=== PATIENT | female | born 1985 | race Caucasian/White ===

== ENCOUNTER 2018-08-13 11:44 | Observation (INO) | payer MEDICAID | END 2018-08-13 13:40 | disposition home or self-care (01) | LOC: FLD 11:44 | PROVIDERS: ADMIT Obstetrics & Gynecology; ATTEND Obstetrics & Gynecology | DX: Z03.79 Encounter for other suspected maternal and fetal conditions ruled out (principal) | CPT/HCPCS: 59025; G0378 ==

== ENCOUNTER 2018-10-21 06:00 | Inpatient (IN) | payer MEDICAID ==
[2018-10-21] MEDS ORDERED: LIDOCAINE 1% 300 MG/30 ML SDV SC PRN (07:12)
[2018-10-21] MEDS ORDERED: OLIVE OIL 118 ML BTL MISC PRN (07:12)
[2018-10-21] MEDS ORDERED: IBUPROFEN 600 MG TAB PO PRN (07:12)
[2018-10-21] MEDS ORDERED: LR 1,000 ML IV PRN (07:12)
[2018-10-21] MEDS ORDERED: OXYTOCIN/RINGERS LACTATE 1,000 ML IV PRN (07:12)
[2018-10-21] MEDS ORDERED: EPSOM SALT 454 GM TP PRN (07:12)
[2018-10-21] MEDS ORDERED: MISOPROSTOL 200 MCG TAB PR PRN (07:12)
[2018-10-21 07:31] LABS: PLATELET COUNT 265 10^3/uL (150-400)
[2018-10-21] MEDS ORDERED: AMMONIA AROMATIC 1 EACH AMP IH ONE (08:16)
[2018-10-21] MEDS ORDERED: MISOPROSTOL 200 MCG TAB ONE (08:16)
[2018-10-21] MEDS ORDERED: OXYTOCIN 10 UNIT/ML VIAL ONE (08:16)
[2018-10-21] MEDS ORDERED: LIDOCAINE 1% 300 MG/30 ML SDV ONE (08:16)
[2018-10-21] MEDS ORDERED: OLIVE OIL 118 ML BTL MISC ONE (08:16)
[2018-10-21] MEDS ORDERED: TERBUTALINE SULFATE 1 MG/ML VIAL ONE (08:16)
[2018-10-21] MEDS ORDERED: OXYTOCIN/RINGERS LACTATE 500 ML IV SCH (08:30)
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
[2018-10-21] MEDS ORDERED: BUPIVACAINE 0.25% 10 ML SDV ONE (11:06)
[2018-10-21] MEDS ORDERED: fentaNYL 100 MCG/2 ML INJ ONE (11:06)
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
[2018-10-21] MEDS ORDERED: ONDANSETRON 4 MG/2 ML VIAL IVP PRN (11:22)
[2018-10-21] MEDS ORDERED: PHENYLEPHRINE HCL 100 MCG/ML SYR IVP PRN (11:22)
--- NOTE | 2018-10-21 11:25 | PREANESOB ---
Obstetric Pre-Anesthesia Info - General Info Proposed Procedure: SOLA : 2 Para: 1 MARLIN: 10/14/18 Gestational Age: 41 week(s) and 0 day(s) - Info Status: Full Term FHR Pattern: Reassuring - Labor Status Cervical Dilation per last OB SVE: 5 Station per last OB SVE: -2 Indications for Labor Analgesia: Augmentation of Labor, Pain Control Labor Epidural: Yes Anesthesia Allergies/Adverse Reactions: Allergy/AdvReac Type Severity Reaction Status Date / Time No Known Allergies Allergy Unverified 08/13/18 12:07 Home Medications: Medication Instructions Recorded Bupropion HCl [Wellbutrin Xl] 300 mg PO DAILY 10/21/18 Visit Medications: Generic Name Dose Route Start Last Admin Trade Name Freq PRN Reason Stop Dose Admin Fentanyl/Bupivacaine HCl 0 ml 10/21/18 11:30 Fentanyl/Bupivacaine/Ns 2 Mcg/Ml 0.1% (Premix EP 10/31/18 11:29 AD DENNIS Lactated Ringer's 1,000 mls @ 0 mls/hr 10/21/18 07:12 Lr IV 10/22/18 07:11 PRN PRN SEE PROTOCOL CONDITIONS Protocol Per Protocol Oxytocin/Lactated Ringer's 1,000 mls @ 125 mls/hr 10/21/18 07:12 Pitocin 20 Units/Lr (Premix) IV PRN PRN Post bleeding Oxytocin/Lactated Ringer's 500 mls @ 0 mls/hr 10/21/18 08:30 Pitocin 30 Units/Lr (Premix) IV 04/19/19 08:29 CONT DENNIS Titrate Ibuprofen 600 mg 10/21/18 07:12 Motrin PO ONCE PRN post , pain Lidocaine HCl 300 mg 10/21/18 07:12 Lidocaine Hcl 1% SC 04/19/19 07:11 ONCE PRN episiotomy Magnesium Sulfate 454 gm 10/21/18 07:12 Epsom Salt TP 04/19/19 07:11 Q1H PRN perineal discomfort Misoprostol 800 - 1,000 mcg 10/21/18 07:12 Cytotec AR ONCE PRN Vaginal Atony/Bleeding [place] Oil 118 ml 10/21/18 07:12 Sweet Oil MISC 04/19/19 07:11 ONCE PRN perineal massage Discontinued Medications Generic Name Dose Route Start Last Admin Trade Name Freq PRN Reason Stop Dose Admin Ammonia (Aromatic Spirit) Confirm 10/21/18 08:16 Ammonia Aromatic Administered 10/21/18 08:17 Dose 1 each IH .STK-MED ONE Bupivacaine HCl Confirm 10/21/18 11:06 Sensorcaine 0.25% Sdv Administered 10/21/18 11:07 Dose 10 ml .ROUTE .STK-MED ONE Fentanyl Confirm 10/21/18 11:06 Sublimaze Administered 10/21/18 11:07 Dose 100 mcg .ROUTE .STK-MED ONE Lidocaine HCl Confirm 10/21/18 08:16 Lidocaine Hcl 1% Administered 10/21/18 08:17 Dose 300 mg .ROUTE .STK-MED ONE Misoprostol Confirm 10/21/18 08:16 Cytotec Administered 10/21/18 08:17 Dose 1,000 mcg .ROUTE .STK-MED ONE [place] Oil Confirm 10/21/18 08:16 Sweet Oil Administered 10/21/18 08:17 Dose 118 ml MISC .STK-MED ONE Oxytocin Confirm 10/21/18 08:16 Pitocin Administered 10/21/18 08:17 Dose 40 unit .ROUTE .STK-MED ONE Terbutaline Sulfate Confirm 10/21/18 08:16 Brethine Administered 10/21/18 08:17 Dose 1 mg .ROUTE .STK-MED ONE - Vital Signs Height/Weight (Nursing): Height 5 ft 6 in Weight 60.781 kg - Focused Exam Neck exam: FROM Mallampati Score: Class 2 Mouth exam: normal dental/mouth exam Pulmonary: no respiratory distress Cardiovascular: regular rate and rhythym Labs: 10/21/18 07:15 Patient ABO/Rh A POSITIVE 10/21/18 07:15 - Plan Consent Signed and on Chart: Yes Patient/Guardian Understands and Agrees to Plan: Yes Urgent/Emergent Case: Izzy stauffer completed preop but documented later for safe timely pt care
[2018-10-21] MEDS ORDERED: fentaNYL 2MCG/ML/BUP 0.1% RTU 100 ML BAG EP SCH (11:30)
[2018-10-21] MEDS ORDERED: LR 500 ML IV SCH (11:30)
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
[2018-10-21] MEDS ORDERED: SIMETHICONE 80 MG TAB CHEW PO PRN (14:27)
[2018-10-21] MEDS ORDERED: HYDROCORTISONE 0.5% CREAM TP PRN (14:27)
[2018-10-21] MEDS ORDERED: MEASLES,MUMPS&RUBELLA VACC/PF 0.5 ML VIAL SC ONE (14:28)
--- NOTE | 2018-10-21 14:33 | OBDEL ---
Info Type: Vaginal Presentation at Delivery: Vertex (VANE) L&D Analgesia/Anesthesia Type: Epidural GBS+: No - Hospital Course Intrapartum: 10/21/18 11:11 Pt is very uncomfortable with ctx's and is requesting an epidural at this time. 10/21/18 13:06 Pt is comfortable, s/p epidural Indications for Delivery: Postterm Favorable Cervix Vaginal Delivery - Delivery Provider Delivery Physician/CNM: Anna Roblero - Labor and Delivery Onset of Contractions Date: 10/21/18 Onset of Contractions Time: 08:45 Onset of Contractions Type: Induced Rupture of Membranes Date: 10/21/18 Rupture of Membranes Time: 12:30 Rupture of Membranes Type: Artificial Amniotic Fluid Color: Clear Dilation Complete Date: 10/21/18 Dilation Complete Time: 13:15 Placenta Delivery Date: 10/21/18 Placenta Delivery Time: 14:09 Total Hours of Labor: 5 Non-surgical Procedures: Amniotomy Episiotomy: Right Lateral Repair: 3-0, Vicryl Vaginal Sponge Count Correct: No Vaginal Needle Count Correct: No Vaginal Sweep Performed: No EBL: 400cc Delivery Events: Nuchal Cord (loose x 1-slipped on perineum) Delivery Comment: Delivery of a viable male infant in VANE presentation over R mediolateral episiotomy under an epidural at 1359 with 8 and 9 Apgars. Loose nuchal x 1- slipped on perineum. Baby boy to maternal abdomen. Cord clamping was delayed x 90 sec and then cord clamped x 2 and cut. Cord blood obtained. Placenta then delivered spontaneously intact with 3-vc. Inspection of vagina and perineum revealed R mediolateral episiotomy with no extensions that was repaired with 3- 0 Vicryl. Then a band of tissue was noted before delivery and while pt was pushing located near hymenal ring attached to L labia minora which was cut and no repair needed-hemostatic. There was bruising noted b/l inner vaginal zhou, ? hematomas-no change in size throughout delivery and repair. Uterus was noted to be below umbilicus and firm with minimal bleeding. Mom and baby in stable condition. - Medications Labor Augmentation/Induction Methods Used: Pitocin Labor Augmentation/Induction Indication: Post Dates Data MARLIN: 10/14/18 Gestational Age: 41 week(s) and 0 day(s) Beltran Delivery Date: 10/21/18 Delivery Time: 13:59 Sex of : Male ("Milind") Score (1 Min): 8 Score (5 Min): 9 ICD10 Worksheet Patient Problems: Problems Problem Status Onset Encounter for induction of labor Acute Post-dates Acute (spontaneous vaginal delivery) Acute - ICD10 Problem Qualifiers (1) (spontaneous vaginal delivery)
[2018-10-21] MEDS: ACETAMINOPHEN 325 MG TAB PO PRN (16:11)
[2018-10-22] MEDS: ACETAMINOPHEN 325 MG TAB PO PRN ×4 (00:02→20:06)
[2018-10-22] MEDS: IBUPROFEN 600 MG TAB PO PRN ×3 (00:02→20:06)
[2018-10-22] MEDS: DOCUSATE SODIUM 100 MG CAP PO SCH ×3 (00:02→20:05)
[2018-10-22] MEDS ORDERED: MEASLES,MUMPS&RUBELLA VACC/PF 0.5 ML VIAL SC ONE (08:30)
[2018-10-22] MEDS ORDERED: buPROPion XL 150 MG TAB PO SCH (09:00)
[2018-10-22] MEDS ORDERED: EPSOM SALT 454 GM TP PRN (09:13)
[2018-10-22] MEDS ORDERED: EPSOM SALT 454 GM TP ONE (09:30)
--- NOTE | 2018-10-22 12:53 | OBPP ---
Progress Note Assessment/Plan: Assessment: PPD1 s/p - Postdates IOL at 41 weeks. [id number]. - Cont Epsom salt soaks. - No need for iron sups. - Routine cares, likely home tomorrow. RENNY Subjective/ Course: Doing great, bottom is sore but seems to be getting better. Epsom soak helped a lot. Pain controlled without narcotics. BF going well, mood good. Tolerating diet. Objective: 10/21/18 07:15 Patient ABO/Rh A POSITIVE 10/21/18 07:15 Temp Pulse Resp BP Pulse Ox 36.2 C 100 18 119/69 96 10/21/18 20:34 10/21/18 20:34 10/21/18 20:34 10/21/18 20:34 10/21/18 20:34 Uterine Tone: Firm (Per RN)
[2018-10-22] MEDS: buPROPion XL 150 MG TAB PO SCH (17:39)
[2018-10-23] MEDS: ACETAMINOPHEN 325 MG TAB PO PRN ×2 (02:38→09:09)
[2018-10-23] MEDS: IBUPROFEN 600 MG TAB PO PRN ×2 (02:38→09:09)
[2018-10-23] MEDS: DOCUSATE SODIUM 100 MG CAP PO SCH (09:09)
[2018-10-23] MEDS: buPROPion XL 150 MG TAB PO SCH (09:22)
[2018-10-23] MEDS ORDERED: EPSOM SALT 454 GM TP ONE (09:34)
[2018-10-23 10:04] VITALS: BP 116/72
--- NOTE | 2018-10-23 12:20 | OBPP ---
Progress Note Assessment/Plan: Assessment: 32 y/o G2 now P2 s/p @ 41 weeks for postdate IOL PPD #2 - pt is stable h/o pp psychosis with G1 - on Wellbutrin XL Plan: Plan for d/c home today Instructions reviewed with pt No Rx given to pt Continue PNV and colace prn Pelvic rest RTC in 2 and 4 weeks for mood check with pp wellness center and 6 weeks for a pp check Pt has a hospice social worker working with her at [facility] for close follow-up; cont Wellbutrin XL Mood precautions given. 10/23/18 12:24 Subjective/ Course: Doing great, bottom is sore but seems to be getting better. Epsom soak helped a lot. Pain controlled without narcotics. BF going well, mood good. Tolerating diet. 10/23/18 12:22 Pt seen and examined. Doing well, notes her bottom is sore-but relief with Epsom salt baths. She has mild-mod cramping, relief with Motrin/Tylenol. Mod lochia. Pt is OOB, kenyon regular diet, voiding without difficulty, and passing flatus. No BM. BF is going well. Ready to go home, mood is good. Objective: 10/21/18 07:15 Patient ABO/Rh A POSITIVE 10/21/18 07:15 Temp Pulse Resp BP Pulse Ox 36.8 C 94 16 116/72 96 10/23/18 08:00 10/23/18 08:00 10/23/18 08:00 10/23/18 08:00 10/22/18 20:41 Uterine Position/Fundal Height: Umbilicus -2 Uterine Tone: Firm Physical Exam - Physical Exam General Appearance: WD/WN, alert, no apparent distress Respiratory: lungs clear, normal breath sounds Cardiac/Chest: regular rate, rhythm Abdomen: normal bowel sounds, non-tender, soft, flatus (+) Extremities: non-tender, normal inspection Skin: normal color, warm/dry Neuro/Psych: alert, normal mood/affect, oriented x 3
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
--- NOTE | 2018-10-28 09:12 | POSTANESTH ---
Post Anesthetic Evaluation Cardiovascular Status: Normal, Stable Respiratory Status: Normal, Stable Level of Consciousness/Mental Status: Can Participate in Eval Pain Control: Adequate, Prn Tx Ordered Nausea/Vomiting Control: Adequate, Prn Tx Ordered Complications Possibly Related to Anesthesia: None Noted
== END 2018-10-23 14:40 | disposition home or self-care (01) | DRG 560 ==
LOC: FLD 06:15 → FOB 17:35
PROVIDERS: ADMIT Obstetrics & Gynecology; ATTEND Obstetrics & Gynecology
DX: O48.0 Post-term pregnancy (principal); O99.344 Other mental disorders complicating childbirth; F41.9 Anxiety disorder, unspecified; Z37.0 Single live birth; Z3A.41 41 weeks gestation of pregnancy; O69.82X0 Labor and delivery complicated by other cord entanglement, without compression, not applicable or unspecified
CPT/HCPCS: J2370; J2590; J3010; J3105